=== PATIENT | female | born 1985 | race Two or more races ===

== ENCOUNTER → 2022-03-09 | Outpatient (CLI) | payer BC, OTHER ==
[~2022-03-09] MED LIST: ASPI81 PO; ATOR40TA71 PO; METO25 PO; TICA90TA PO
[2022-03-09 10:43] VITALS: BP 132/76
== END | disposition home or self-care (01) ==
LOC: SRCNTR 10:15
PROVIDERS: ATTEND Internal Medicine
DX: I10 Essential (primary) hypertension (principal); Z09 Encounter for follow-up examination after completed treatment for conditions other than malignant neoplasm; E11.9 Type 2 diabetes mellitus without complications; E78.5 Hyperlipidemia, unspecified; I25.10 Atherosclerotic heart disease of native coronary artery without angina pectoris; I21.4 Non-ST elevation (NSTEMI) myocardial infarction
CPT/HCPCS: G0463; Z7500